=== PATIENT | female | born 1955 | race Caucasian/White ===

== ENCOUNTER 2017-05-02 21:20 | Emergency (ER) | payer SELFPAY ==
[2017-05-02 21:27] VITALS: BP 145/93; BMI 34.7
--- NOTE | 2017-05-03 07:58 | DR.GENAD ---
HPI - Complaint/Symptoms Chief Complaint:: PT STATES THAT SHE FELL LAST MONDAY., WAS SEEN IN [facility] THAT DAY AND WAS TOLD THAT SHE SHE HAD JUST BRUISED HER BACK. THEN WENT TO [place] AND WAS TOLD SHE HAD BRUISED RIBS Self Treatment fo Chief Complaint: PT HAS BEEN TAKING NORCO 5S AND NORCO 10S - Nurses notes reviewed Nurses Notes Review: Yes - Source History Provided: Patient - Mode of Arrival Mode of Arrival: Ambulatory - Timing Onset of Chief Complaint: 04/24/17 PMH - PMH Past Medical History: Yes Past Medical History: Anxiety, Asthma, COPD, Dyslipidemia, GERD, Headaches, Hyperthyroidism Past Surgical History: Yes Surgical History: Abdominal Surgery, Appendectomy, Cholecystectomy, [employer] Surgery , Hysterectomy - Family History History of Family Medical Conditions: Yes Family Medical History: Cancer, OR, Coronary Artery Disease, Heart Failure, Hypertension - infectious screening Have you traveled outside the country in the last 6 months?: No PE - Vital Signs Vitals: Temperature 98.2 F Pulse Rate 73 Respiratory Rate 18 Blood Pressure 145/93 O2 Sat by Pulse Oximetry 98 - Discharge Plan Disposition: [facility] After Triage Condition: Stable - Follow ups/Referrals Follow ups/Referrals: KRAIG QUINTERO [Primary Care Provider] - 3 days - Instructions
== END 2017-05-02 23:20 | disposition left against medical advice (07) ==
LOC: ER 21:33
DX: R07.89 Other chest pain (principal)
CPT/HCPCS: 99281